=== PATIENT | female | born 1980 | race Caucasian/White ===

== ENCOUNTER 2017-07-14 10:50 | Emergency (ER) | payer BC ==
[~2017-07-14] VITALS: Ht 160 cm; Wt 89.9 kg
[~2017-07-14 10:50] MED LIST: HYDROCHLOROTHIA25 MG; VENLAFAXINE HCL75 M3
[2017-07-14 11:16] VITALS: BP 152/104
== END 2017-07-14 12:23 | disposition left against medical advice (07) ==
LOC: EME 10:50
DX: R11.10 Vomiting, unspecified (principal); Z53.21 Procedure and treatment not carried out due to patient leaving prior to being seen by health care provider
CPT/HCPCS: 80048; 81003; 84702; 85027